=== PATIENT | male | born 1965 | race American Indian/Alaskan Native ===

== ENCOUNTER 2017-09-01 06:51 | Day surgery (SDC) | payer BC ==
[2017-09-01 07:15] VITALS: BMI 25.9
[2017-09-01] MEDS ORDERED: Lidocaine Hydrochloride 5 ML INJ ONE (10:01)
[2017-09-01] MEDS ORDERED: Propofol 10 mg/ml Inj (20 ML) ONE ×3 (10:01→10:31)
[2017-09-01] MEDS ORDERED: Lactated Ringer's 1,000 ML IV ONE (10:40)
[2017-09-01 14:09] VITALS: BP 137/81; PULSE 78; RESP 19; TEMP 97.7; O2SAT 98
== END 2017-09-01 11:50 | disposition home or self-care (01) ==
LOC: C.ENDO 06:51
PROVIDERS: ATTEND Internal Medicine Gastroenterology
DX: D12.5 Benign neoplasm of sigmoid colon (principal); K58.9 Irritable bowel syndrome, unspecified; K64.8 Other hemorrhoids
CPT/HCPCS: 45384; 88305; J2704; J3010; J7120